=== PATIENT | male | born 1965 | race Caucasian/White ===

== ENCOUNTER 2020-04-24 17:38 | Emergency (ER) | payer OTHER, MEDICARE ==
[2020-04-24 17:52] VITALS: BP 158/98; PULSE 127
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
== END 2020-04-24 19:30 | disposition home or self-care (01) ==
LOC: VM.ED 17:38
DX: S70.12XA Contusion of left thigh, initial encounter (principal); I10 Essential (primary) hypertension; Z96.643 Presence of artificial hip joint, bilateral; Z79.899 Other long term (current) drug therapy; Y04.2XXA Assault by strike against or bumped into by another person, initial encounter; Y92.039 Unspecified place in apartment as the place of occurrence of the external cause
CPT/HCPCS: 72170; 99283; 99284-25

== ENCOUNTER 2021-08-08 21:00 | Emergency (ER) | payer OTHER, MEDICARE ==
[2021-08-08 21:50] VITALS: BP 127/73; PULSE 130
== END 2021-08-08 22:30 | disposition home or self-care (01) ==
LOC: VM.ED 21:00
DX: M79.652 Pain in left thigh (principal); I10 Essential (primary) hypertension; Z79.82 Long term (current) use of aspirin; Z79.899 Other long term (current) drug therapy; Z72.0 Tobacco use
CPT/HCPCS: 99284